=== PATIENT | female | born 1965 | race Caucasian/White ===

== ENCOUNTER 2016-11-17 16:08 | Emergency (ER) | payer OTHER ==
[2016-11-17 16:15] VITALS: BP 130/73
--- NOTE | 2016-11-17 17:40 | UC ---
Skin Complaint HPI - HPI Summary HPI Summary: has had multiple tick bites--She now has a circular rash on her right hip, feverish, fatigue and body ache just as a few years ago when she had Lyme - History of Current Complaint Chief Complaint: UCSkin Time Seen by Provider: 11/17/16 17:39 Stated Complaint: BUG BITE W RASH,COUGH,ACHES Hx Obtained From: Patient ?: No Onset/Duration: Sudden Onset, Lasting Days, Still Present Timing: Constant Onset Severity: Moderate Current Severity: Moderate Location: Diffuse Aggravating: Nothing Alleviating: Nothing Associated Signs & Symptoms: Positive: Negative Related History: Insect Bite/Sting - Allergy/Home Medications Allergies/Adverse Reactions: Allergies Allergy/AdvReac Type Severity Reaction Status Date / Time Erythromycin Allergy Intermediate Hives Verified 01/22/12 11:59 [From Erythrocin Stearate] Mustard Seed Allergy Intermediate Hives Verified 01/22/12 11:58 Tomato Allergy Mild Rash Verified 01/22/12 12:00 Basil Oil Allergy Unknown Unknown Verified 01/22/12 12:01 Reaction Details Formaldehyde Allergy Unknown Unknown Verified 01/22/12 11:59 Reaction Details Doxycycline Allergy Rash Verified 11/15/15 10:40 Iodinated Contrast Media AdvReac Unknown Rash Verified 01/22/12 11:59 [IV CONTRAST DYE] Wheat Extract AdvReac Unknown Unknown Verified 01/22/12 11:54 Reaction Details Review of Systems Constitutional: Chills, Fatigue Skin: Rash Eyes: Negative ENT: Negative Respiratory: Negative Cardiovascular: Negative Gastrointestinal: Negative Genitourinary: Negative Motor: Negative Neurovascular: Negative Musculoskeletal: Arthralgia, Myalgia Neurological: Negative Psychological: Negative All Other Systems Reviewed And Are Negative: Yes PMH/Surg Hx/FS Hx/Imm Hx Previously Healthy: Yes - Surgical History Surgical History: Yes Surgery Procedure, Year, and Place: L ovary removal. surgery for fibroids. - Family History Known Family History: Positive: Hypertension - Social History Occupation: Employed Full-time Lives: With Family Alcohol Use: Occasionally Substance Use Type: None Smoking Status (MU): Never Smoked Tobacco Physical Exam Triage Information Reviewed: Yes Appearance: Well-Appearing, No Pain Distress, Well-Nourished Vital Signs: Initial Vital Signs Temp 98.5 F 11/17/16 16:11 Pulse 75 11/17/16 16:11 Resp 18 11/17/16 16:11 BP 130/73 11/17/16 16:11 Pulse Ox 98 11/17/16 16:11 Vital Signs Reviewed: Yes Eye Exam: Normal Eyes: Positive: Conjunctiva Clear ENT Exam: Normal ENT: Positive: Normal ENT inspection, Hearing grossly normal, Pharynx normal. Negative: Nasal congestion, Nasal drainage, Trismus, Muffled/hoarse voice Dental Exam: Normal Neck exam: Normal Neck: Positive: Supple, Nontender, No Lymphadenopathy Respiratory Exam: Normal Respiratory: Positive: Chest non-tender, Lungs clear, Normal breath sounds, No respiratory distress, No accessory muscle use Cardiovascular Exam: Normal Cardiovascular: Positive: RRR, No Murmur, Pulses Normal, Brisk Capillary Refill Musculoskeletal Exam: Normal Musculoskeletal: Positive: Strength Intact, ROM Intact, No Edema Neurological Exam: Normal Neurological: Positive: Alert, Muscle Tone Normal Psychological Exam: Normal Skin Exam: Normal Skin: Positive: rashes Course/Dx - Course Course Of Treatment: Amoxicillin x 3weeks, increase fluids, follow with PCP - Differential Diagnoses - Skin Complaint Differential Diagnoses: Poison Abby, Systemic Illness, Tick Born Illness, Tinea, Other - erythema migranes - Diagnoses Provider Diagnoses: Erythema Migranes, Lyme Discharge - Discharge Plan Condition: Stable Disposition: HOME Prescriptions: Amoxicillin PO (*) [Amoxicillin 500 MG CAP*] 500 mg PO TID #63 cap Patient Education Materials: Amoxicillin (By mouth), Lyme Disease (ED) Referrals: Lamar Cohen MD [Primary Care Provider] - 2 Weeks
== END 2016-11-17 17:55 | disposition home or self-care (01) ==
LOC: UCEAST 16:08
DX: A26.0 Cutaneous erysipeloid (principal); A69.20 Lyme disease, unspecified
CPT/HCPCS: 99212; G0463

== ENCOUNTER 2017-10-20 14:35 | Emergency (ER) | payer OTHER ==
[2017-10-20 15:22] VITALS: BP 150/82
--- NOTE | 2017-10-20 15:24 | UC ---
Tanya Kenny Julia, scribed for Allison Barrett MD on 10/20/17 at 1457 . Back Pain HPI - HPI Summary HPI Summary: This patient is a 51 year old F presenting to [facility] with a chief complaint of left lower back pain for the past month gradually worsening with pain radiating down left leg for the past couple of days. Denies any specific event . Has h/o one past episode of similar symptoms long tome ago and was diagnosed with sciatica - due to her fibroid and responded to the surgery . Pain is 8/10 in severity. Pain is aggravated by laying on left side, and by bending forward. Pain gets worse with every movement . Reports difficulty walking secondary to pain. Denies incontinence, saddle sensation, motor weakness, and numbness or tingling in the extremities. Additionally denies fever, chills, CP, SOB, abdominal pain, and n/v/d. She has been taking three Motrin every six hours without relief for the past few days. Her pain has been waking her from sleep. 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 She has been seen by her PCP 2 weeks ago. Allergies reviewed with patient. - History of Current Complaint Chief Complaint: UCBackPain Stated Complaint: BACK PAIN Time Seen by Provider: 10/20/17 14:39 Hx Obtained From: Patient Onset/Duration: Gradual Onset, Lasting Weeks, Still Present Timing: Constant Pain Intensity: 8 Pain Scale Used: 0-10 Numeric Back Pain: Is Discrete @ - left lower back Aggravating Factor(s): Bending Alleviating Factor(s): Nothing Associated Signs And Symptoms: Positive: Negative - Allergies/Home Medications Allergies/Adverse Reactions: Allergies Allergy/AdvReac Type Severity Reaction Status Date / Time basil Allergy Unknown Verified 10/20/17 14:47 Reaction Details doxycycline Allergy Rash Verified 10/20/17 14:47 erythromycin base Allergy Hives Verified 10/20/17 14:47 formaldehyde Allergy Rash Verified 10/20/17 14:47 latex Allergy Rash Verified 10/20/17 14:47 tomato Allergy Rash Verified 10/20/17 14:47 wheat Allergy Unknown Verified 10/20/17 14:47 Reaction Details PMH/Surg Hx/FS Hx/Imm Hx Previously Healthy: Yes Other Endocrine History: negative Cardiovascular History: Hypertension Respiratory History: Asthma Other GI/ History: negative Other Neurological History: negative Other Psychological History: negative Other Cancer History: negative - Surgical History Surgical History: Yes Surgery Procedure, Year, and Place: L ovary removal. surgery for fibroids. - Family History Known Family History: Positive: Hypertension - Social History Alcohol Use: Occasionally Substance Use Type: None Smoking Status (MU): Never Smoked Tobacco Review of Systems Constitutional: Negative Skin: Negative Eyes: Negative ENT: Negative Respiratory: Negative Cardiovascular: Negative Gastrointestinal: Negative Genitourinary: Negative Motor: Negative Neurovascular: Negative Musculoskeletal: Decreased ROM, Myalgia - left low back pain with radiation to left leg, Other: - low back pain Neurological: Negative Psychological: Negative Is Patient Immunocompromised?: No All Other Systems Reviewed And Are Negative: Yes Physical Exam - Summary Physical Exam Summary: Appearance: Well-Appearing, No Pain Distress, Well-Nourished Eyes: conjunctiva clear, no discharge ENT: Hearing grossly normal, no muffled/hoarse voice. Neck: Normal, Supple Respiratory/Lung Sounds: Lungs clear, Normal breath sounds, No respiratory distress, No accessory muscle use Cardiovascular: RRR, No murmur Abdomen: Nontender, Soft, no guarding, not distended Bowel Sounds: Present Musculoskeletal: Spine: tenderness to palpation at the L3L4 AND L4L5 ., some midline but mainly left paraspinal muscles. Straight leg raise and slump test are negative but painful . Spine ROM is limited and painful in all planes. Left hip ROM is full and pain free Neurological: Alert, muscle tone normal. Reflexes are normal and equal bilaterally. Motor and sensation are intact Psychiatric:Normal, age appropriate behavior Skin: Normal, Warm, Dry, Normal color Triage Information Reviewed: Yes Vital Signs: Initial Vital Signs Temp 98.3 F 10/20/17 14:39 Pulse 86 10/20/17 14:39 Resp 18 10/20/17 14:39 BP 163/103 10/20/17 14:39 Pulse Ox 98 10/20/17 14:39 Vital Signs Reviewed: Yes Back Pain Course/Dx - Course Course Of Treatment: During the visit today, we discussed the findings and further plan. I will prescribe the medication to the pharmacy for pain relief. Plan to start Physical therapy. We discussed that she needs imaging including MRI to evaluate for a disc injury with PCP / orthopedics. Plan to do that if no improvement with conservative management . Patient expressed understanding . - Differential Dx/Diagnosis Differential Diagnosis/HQI/PQRI: Strain Provider Diagnoses: Low back pain. Lumbar disc injury likely L3L4 and L4L5. Discharge - Sign-Out/Discharge Documenting (check all that apply): Discharge/Admit/Transfer - Discharge Plan Condition: Stable Disposition: HOME Prescriptions: Cyclobenzaprine TAB* [Flexeril 10 MG TAB*] 10 mg PO BID 10 Days #20 tab methylPREDNISolone [Medrol Dosepak 4 MG*] 1 mg PO .[employer] 6 Days # 1 tab Naproxen [Naproxen 500 mg tab] 500 mg PO BID PRN 7 Days #14 tablet.dr PATEL Reason: Pain Patient Education Materials: Low Back Strain (ED), Lower Back Exercises (ED) Referrals: Lamar Cohen MD [Primary Care Provider] - 1 Week Amanda Garcia MD [Medical Doctor] - Additional Instructions: Start taking medications as prescribed. to the pharmacy . Start physical therapy . Follow up with your primary care doctor in 1 week. Follow up with orthopedics if no improvement. Patients blood pressure slightly high in Urgent care today , plan follow up with PCP for better control Return to Urgent care / ER if symptoms get worse. - Billing Disposition and Condition Condition: STABLE Disposition: Home The documentation as recorded by the Tanya vieyra Julia accurately reflects the service I personally performed and the decisions made by me, Allison Barrett MD.
== END 2017-10-20 15:25 | disposition home or self-care (01) ==
LOC: UCEAST 14:35
DX: M54.5 Low back pain (principal); Z88.1 Allergy status to other antibiotic agents; Z91.09 Other allergy status, other than to drugs and biological substances
CPT/HCPCS: 99212; G0463

== ENCOUNTER 2017-10-21 10:12 | Emergency (ER) | payer OTHER ==
[2017-10-21] MEDS ORDERED: NS 0.9% 1000 ML* 1,000 ML IV ONE (10:46)
[2017-10-21] MEDS ORDERED: Ketorolac INJ* 30 MG/ML 1 ML VIAL IV ONE (10:46)
[2017-10-21] MEDS ORDERED: Ondansetron ODT TAB* 4 MG PO ONE (10:46)
[2017-10-21] MEDS ORDERED: Morphine VIAL* 4 MG/ML VIAL (1 ml vial) IV ONE (10:46)
[2017-10-21 11:16] LABS: ABS Basophils 0 10^3/ul (0-0.2); ABS Eosinophils 0.1 10^3/ul (0-0.6); ABS Lymphocytes 1.3 10^3/ul (1.0-4.8); ABS Monocytes 0.1 10^3/ul (0-0.8); ABS Neutrophils 6.5 10^3/ul (1.5-7.7); ABS Nucleated RBC 0 10^3/ul; Hematocrit 45 % (35-47); Hemoglobin 15.3 g/dl (12.0-16.0); Lymphocyte % 16.2 % (25-47); Mean Corpuscular HGB Conc 34 g/dl (31-36); Mean Corpuscular Hemoglobin 27 pg (27-31); Mean Corpuscular Volume 80 fL (80-97); Mean Platelet Volume 7.2 um3 (7.4-10.4); Nucleated Red Blood Cells % 0.1; Platelet Count 239 10^3/ul (150-450); Red Blood Count 5.62 10^6/ul (4.00-5.40); Red Cell Distribution Width 14 % (10.5-15)
[2017-10-21 11:30] LABS: INR 0.94 (0.77-1.02)
[2017-10-21 11:57] LABS: Urine Appearance Clear; Urine Blood 1+ (Negative); Urine Color Yellow; Urine Ketones Negative (Negative); Urine Protein Negative (Negative); Urine Specific Gravity 1.006 (1.010-1.030); Urine Urobilinogen Negative (Negative)
--- NOTE | 2017-10-21 12:05 | RAD ---
Indication: Left flank pain. CT of the abdomen and pelvis was performed without oral or IV contrast administration. Coronal and sagittal reconstructed images were obtained. The lung bases demonstrate no pleural fluid, nodules or masses. Heart is of normal size without evidence of pericardial effusion. Liver is normal in size. Low density lesion in the right lobe of liver measures 10 mm. This likely represents a small hemangioma. Correlation with ultrasound may BE helpful. No other focal lesions are noted. The gallbladder demonstrates multiple gallstones with air-filled stones noted in the gallbladder. No pericholecystic fluid or wall thickening is identified. Common duct is not dilated. The pancreas demonstrates no mass effect or ductal dilatation. The spleen is normal in size. No adrenal lesions are noted. Kidneys demonstrate no hydronephrosis. No retroperitoneal lymphadenopathy is noted. There are no dilated loops of bowel noted CT of pelvis demonstrates uterus and ovaries to be unremarkable. The urinary bladder is unremarkable. No hernias are identified. No free fluid is identified. The visualized abdominal organs are otherwise remarkable. Degenerative disc disease at L5-S1 is noted. IMPRESSION: No obstructive uropathy is noted. No other masses or fluid collections are identified.
--- NOTE | 2017-10-21 12:07 | RAD ---
Indication: Back pain. CT of the lumbar spine was obtained in the axial plane. Sagittal and coronal reconstructed images were obtained. The vertebral bodies appear normal in height. Straightening of the normal lordosis is noted. At L5-S1 there is disc space narrowing. Minimal spondylitic ridge with broad-based protrusion flattens the thecal sac. No definite central or foraminal stenosis is noted. At L4-L5 there is broad-based protrusion flattening the thecal sac. Mild facet arthropathy with ligamentous hypertrophy is noted resulting in a mild spinal stenosis at this level. There is a left posterior lateral disc component of the disc protrusion which appears to impinge upon the left exiting nerve root. At L3-L4 minimal broad-based protrusion flattens the thecal sac. No central or foraminal stenosis is noted. At L1-L2 and L2-L3 no disc protrusion is noted. No fracture is noted. IMPRESSION: At L5-S1 there is degenerative disc disease with broad-based protrusion flattening the thecal sac. Focal central protrusion indents the thecal sac. At L4-L5 broad-based protrusion with a left posterior lateral disc component appears to impinge upon the left exiting nerve root. There also may be some mild ligamentous hypertrophy resulting in mild spinal stenosis. No fracture of the lumbar spine is noted.
[2017-10-21 13:22] LABS: EGFR Non-African American 76.4 (>60)
[2017-10-21] MEDS ORDERED: oxyCODONE/Acetamin 5/325 MG* TAB PO ONE (13:26)
[2017-10-21 14:31] VITALS: BP 145/77
--- NOTE | 2017-10-21 16:03 | ED ---
Maribel Kenny SooYoung, scribed for Isaias Chavez MD on 10/21/17 at 1035 . Back Pain - HPI Summary HPI Summary: A 51 y/o F presents to ED with c/o ongoing L-sided and midline back pain for past month, and worsening last night. Pain rated as 9 out of 10, and radiating to anterior side and LE. Associated sx: mild LE weakness. Denies LE numbness, urinary sx. Pt states "I always have rashes." Aggravating factors: all movement. Pt states she's unable to sleep due to the pain. Seen at [facility] yesterday , started on Flexeril. Last took Naproxen at 0600. SHx: fibroid tumors. Negative PMHx: kidney stones. Multiple allergies noted. - History of Current Complaint Chief Complaint: EDBackInjuryPain Stated Complaint: BACK PAIN Time Seen by Provider: 10/21/17 10:33 Hx Obtained From: Patient, Family/Pets Salesperson Onset/Duration: Lasting Hours - c/c, Lasting Weeks - initial onset, Still Present Onset/Duration: Still Present Timing: Constant Back Pain Location: Is Discrete @ - L-sided back, Radiates To - L-side front, LE Severity Initially: Moderate Severity Currently: Severe Pain Intensity: 9 Pain Scale Used: 0-10 Numeric Associated Signs And Symptoms: Positive: Weakness - mild LE. Negative: Numbness , Bladder Incontinence - Allergies/Home Medications Allergies/Adverse Reactions: Allergies Allergy/AdvReac Type Severity Reaction Status Date / Time basil Allergy Unknown Verified 10/21/17 10:22 Reaction Details doxycycline Allergy Rash Verified 10/21/17 10:22 erythromycin base Allergy Hives Verified 10/21/17 10:22 formaldehyde Allergy Rash Verified 10/21/17 10:22 latex Allergy Rash Verified 10/21/17 10:22 tomato Allergy Rash Verified 10/21/17 10:22 wheat Allergy Unknown Verified 10/21/17 10:22 Reaction Details PMH/Surg Hx/FS Hx/Imm Hx Previously Healthy: No Cardiovascular History: Reports: Hx Hypertension Respiratory History: Reports: Hx Asthma - Cancer History Hx Chemotherapy: No Hx Radiation Therapy: No - Surgical History Surgery Procedure, Year, and Place: L ovary removal. surgery for fibroids. Infectious Disease History: No Infectious Disease History: Denies: History Other Infectious Disease, Traveled Outside the [place] in Last 30 Days - Family History Known Family History: Positive: Hypertension - Social History Occupation: Employed Part-time Lives: With Family Alcohol Use: Occasionally Hx Substance Use: No Substance Use Type: Reports: None Hx Tobacco Use: No Smoking Status (MU): Never Smoked Tobacco Review of Systems Negative: other - neg: urinary sx Positive: Other - back pain; mild LE weakness Negative: Numbness - LE All Other Systems Reviewed And Are Negative: Yes Physical Exam - Summary Physical Exam Summary: General: well-appearing, no pain distress Skin: warm, color reflects adequate perfusion, dry Head: normal Eyes: EOMI, ERNESTO ENT: normal Neck: supple, nontender Respiratory: CTA, breath sounds present Cardiovascular: RRR Abdomen: soft, nontender Bowel: present Musculoskeletal: Tender to palpation of mid spine, lower lumber on left, and paraspinous area. No sensation deficit. Mildly decreased ROM L leg with plantar/ dorsal flexion and knee extension secondary to pain. Neurological: sensory/motor intact, A&O x3 Psychological: affect/mood appropriate Triage Information Reviewed: Yes Vital Signs On Initial Exam: Initial Vitals Temp Pulse Resp BP Pulse Ox 99.2 F 83 18 143/86 95 10/21/17 10:18 10/21/17 10:18 10/21/17 10:18 10/21/17 10:18 10/21/17 10:18 Vital Signs Reviewed: Yes Diagnostics - Vital Signs Vital Signs Temp Pulse Resp BP Pulse Ox 10/21/17 10:18 99.2 F 83 18 143/86 95 - Laboratory Lab Results: Lab Results 10/21/17 10/21/17 10/21/17 Range/Units 10:59 10:59 10:59 WBC 8.0 (3.5-10.8) 10^3/ul RBC 5.62 H (4.00-5.40) 10^6/ul Hgb 15.3 (12.0-16.0) g/dl Hct 45 (35-47) % MCV 80 (80-97) fL MCH 27 (27-31) pg MCHC 34 (31-36) g/dl RDW 14 (10.5-15) % Plt Count 239 (150-450) 10^3/ul MPV 7.2 L (7.4-10.4) um3 Neut % (Auto) 81.1 (38-83) % Lymph % (Auto) 16.2 L (25-47) % [place] % (Auto) 1.2 (0-7) % Eos % (Auto) 1.0 (0-6) % Baso % (Auto) 0.5 (0-2) % Absolute Neuts (auto) 6.5 (1.5-7.7) 10^3/ul Absolute Lymphs (auto) 1.3 (1.0-4.8) 10^3/ul Absolute Monos (auto) 0.1 (0-0.8) 10^3/ul Absolute Eos (auto) 0.1 (0-0.6) 10^3/ul Absolute Basos (auto) 0 (0-0.2) 10^3/ul Absolute Nucleated RBC 0 10^3/ul Nucleated RBC % 0.1 INR (Anticoag Therapy) 0.94 (0.77-1.02) APTT 34.8 (26.0-36.3) seconds Sodium 140 (135-145) mmol/L Potassium 4.2 (3.5-5.0) mmol/L Chloride 106 (101-111) mmol/L Carbon Dioxide 23 (22-32) mmol/L Anion Gap 11 (2-11) mmol/L BUN 8 (6-24) mg/dL Creatinine 0.79 (0.51-0.95) mg/dL Est GFR ( Amer) 92.5 (>60) Est GFR (Non-Af Amer) 76.4 (>60) BUN/Creatinine Ratio 10.1 (8-20) Glucose 143 H (70-100) mg/dL Lactic Acid (0.5-2.0) mmol/L Calcium 10.2 (8.6-10.3) mg/dL Total Bilirubin 0.50 (0.2-1.0) mg/dL AST 16 (13-39) U/L ALT 21 (7-52) U/L Alkaline Phosphatase 61 (34-104) U/L C-Reactive Protein 1.55 (<8.01) mg/L Total Protein 7.9 (6.4-8.9) g/dL Albumin 4.7 (3.2-5.2) g/dL Globulin 3.2 (2-4) g/dL Albumin/Globulin Ratio 1.5 (1-3) Lipase 52 (11.0-82.0) U/L Beta HCG, Quant 4.52 mIU/mL Urine Color Urine Appearance Urine pH (5-9) Ur Specific [place] (1.010-1.030) Urine Protein (Negative) Urine Ketones (Negative) Urine Blood (Negative) Urine Nitrate (Negative) Urine Bilirubin (Negative) Urine Urobilinogen (Negative) Ur Leukocyte Esterase (Negative) Urine WBC (Auto) (Absent) Urine RBC (Auto) (Absent) Urine Bacteria (Absent) Urine Glucose (Negative) 10/21/17 10/21/17 Range/Units 10:59 11:40 WBC (3.5-10.8) 10^3/ul RBC (4.00-5.40) 10^6/ul Hgb (12.0-16.0) g/dl Hct (35-47) % MCV (80-97) fL MCH (27-31) pg MCHC (31-36) g/dl RDW (10.5-15) % Plt Count (150-450) 10^3/ul MPV (7.4-10.4) um3 Neut % (Auto) (38-83) % Lymph % (Auto) (25-47) % [place] % (Auto) (0-7) % Eos % (Auto) (0-6) % Baso % (Auto) (0-2) % Absolute Neuts (auto) (1.5-7.7) 10^3/ul Absolute Lymphs (auto) (1.0-4.8) 10^3/ul Absolute Monos (auto) (0-0.8) 10^3/ul Absolute Eos (auto) (0-0.6) 10^3/ul Absolute Basos (auto) (0-0.2) 10^3/ul Absolute Nucleated RBC 10^3/ul Nucleated RBC % INR (Anticoag Therapy) (0.77-1.02) APTT (26.0-36.3) seconds Sodium (135-145) mmol/L Potassium (3.5-5.0) mmol/L Chloride (101-111) mmol/L Carbon Dioxide (22-32) mmol/L Anion Gap (2-11) mmol/L BUN (6-24) mg/dL Creatinine (0.51-0.95) mg/dL Est GFR ( Amer) (>60) Est GFR (Non-Af Amer) (>60) BUN/Creatinine Ratio (8-20) Glucose (70-100) mg/dL Lactic Acid 0.8 (0.5-2.0) mmol/L Calcium (8.6-10.3) mg/dL Total Bilirubin (0.2-1.0) mg/dL AST (13-39) U/L ALT (7-52) U/L Alkaline Phosphatase (34-104) U/L C-Reactive Protein (<8.01) mg/L Total Protein (6.4-8.9) g/dL Albumin (3.2-5.2) g/dL Globulin (2-4) g/dL Albumin/Globulin Ratio (1-3) Lipase (11.0-82.0) U/L Beta HCG, Quant mIU/mL Urine Color Yellow Urine Appearance Clear Urine pH 6.0 (5-9) Ur Specific [place] 1.006 L (1.010-1.030) Urine Protein Negative (Negative) Urine Ketones Negative (Negative) Urine Blood 1+ A (Negative) Urine Nitrate Negative (Negative) Urine Bilirubin Negative (Negative) Urine Urobilinogen Negative (Negative) Ur Leukocyte Esterase 1+ A (Negative) Urine WBC (Auto) Trace(0-5/hpf) (Absent) Urine RBC (Auto) Trace(0-2/hpf) (Absent) Urine Bacteria Absent (Absent) Urine Glucose Negative (Negative) Result Diagrams: 10/21/17 10:59 10/21/17 10:59 Lab Statement: Any lab studies that have been ordered have been reviewed, and results considered in the medical decision making process. - CT A/P CT CT Interpretation: No Acute Changes - IMPRESSION: No obstructive uropathy is noted. No other masses or fluid collections are identified. ED physician has reviewed this radiology report and agrees. CT Interpretation Completed By: Radiologist L-SPINE CT Interpretation: Positive (See Comments) - IMPRESSION: At L5-S1 there is degenerative disc disease with broad-based protrusion flattening the thecal sac. Focal central protrusion indents the thecal sac. At L4-L5 broad-based protrusion with a left posterior lateral disc component appears to impinge upon the left exiting nerve root. There also may be some mild ligamentous hypertrophy resulting in mild spinal stenosis. No fracture of the lumbar spine is noted. ED physician has reviewed this radiology report and agrees. CT Interpretation Completed By: Radiologist Re-Evaluation - Re-Evaluation 1 Re-Evaluation Time: 13:17 Change: Improved Comment: Discussing imaging results with pt. Pt voiced understanding. Upon brief PE, pt was able to plantar/dorsal flex L foot and great toe. Back Pain Course/Dx - Course Course Of Treatment: SOME IMPROVEMENT IN PAIN IN ED. REVIEWED LAB/CT RESULTS WITH THE PATIENT AND . NO WEAKNESS/DECREASED SENSATION FOUND ON EXAM. NO LOSS OF BLADDER/BOWEL CONTROL. DECREASED ROM DUE TO PAIN. I DISCUSSED F/U WITH PMD; CALL TOMORROW FOR F/U. ALSO DISCUSSED THE NEED FOR IMMEDIATE RE EVALUATION IF ANY NEUROLOGIC DEFICIT OCCURS. - Diagnoses Provider Diagnoses: Low back pain, Lumbar radiculopathy Discharge - Sign-Out/Discharge Documenting (check all that apply): Discharge/Admit/Transfer - Discharge Plan Condition: Stable Disposition: HOME Prescriptions: oxyCODONE/Acetamin 5/325 MG* [Percocet 5/325 TAB*] 1 tab PO Q4H PRN #30 tab MDD 6 PRN Reason: Pain Patient Education Materials: Acute Low Back Pain (ED), Lumbar Radiculopathy (ED ) Forms: *Work Release Referrals: Lamar Cohen MD [Primary Care Provider] - Additional Instructions: FOLLOW UP WITH YOUR DOCTOR. CALL TOMORROW FOR FOLLOW UP. GET RECHECKED FOR ANY WORSENING OF YOUR CONDITION; WEAKNESS, NUMBNESS, DIFFICULTY CONTROLLING BOWEL OR BLADDER OR QUESTIONS OR CONCERNS. - Billing Disposition and Condition Condition: STABLE Disposition: Home The documentation as recorded by the Maribel vieyra SooYoung accurately reflects the service I personally performed and the decisions made by me, Isaias Chavez MD.
--- NOTE | 2017-10-23 07:23 | PN ---
Progress Note - Progress Note Date of Service: 10/21/17 Note: Urine culture grew strep group B Patient placed on antibiotics prior to discharge Due to low colony count, will not place on antibiotics at this time due to risk to benefit ratio Nothing further at this time, Daija Tuttle, PAC
== END 2017-10-21 14:31 | disposition home or self-care (01) ==
LOC: ED 10:12
DX: M51.16 Intervertebral disc disorders with radiculopathy, lumbar region (principal); M51.37 Other intervertebral disc degeneration, lumbosacral region; M51.27 Other intervertebral disc displacement, lumbosacral region; Z88.3 Allergy status to other anti-infective agents; Z88.8 Allergy status to other drugs, medicaments and biological substances
CPT/HCPCS: 36415; 72131; 74176; 80053; 81003; 81015; 83605; 83690; 84702; 85025; 85610; 85730; 86140; 87077; 87086; 96361; 96374; 96375; 99282; A9270-GY; J1885; J2270

== ENCOUNTER 2017-11-27 06:07 | Observation (INO) | payer OTHER ==
[~2017-11-27 06:07] MED LIST: Buffered Lidocaine 0.9% SYRIN* 5 ML/SYR SYRINGE INTRADERM ONE; Dexamethasone IV* 4 MG/ML 1 ML (4 MG) IV SLOW PU ONE; Famotidine IV* 10 MG/ML 2 ML (20 mg) IV ONE
[2017-11-27] MEDS ORDERED: Dexamethasone IV* 4 MG/ML 1 ML (4 MG) ONE (06:40)
[2017-11-27] MEDS ORDERED: Famotidine IV* 10 MG/ML 2 ML (20 mg) ONE (06:40)
[2017-11-27] MEDS ORDERED: ceFAZolin 2 GM PREMIX (*) 2 GM/50 ML BAG IVPB ONE (06:41)
[2017-11-27] MEDS ORDERED: fentaNYL* 50 MCG/ML 5 ML VIAL (250 MCG VIAL) ONE (06:45)
[2017-11-27] MEDS ORDERED: Midazolam* 1 MG/ML 2 ML VIAL (2 MG) ONE (06:45)
[2017-11-27] MEDS ORDERED: Rocuronium* 10 MG/ML VIAL ONE (06:45)
[2017-11-27] MEDS ORDERED: Lidocaine 2% PF * 5 ML VIAL ONE (06:46)
[2017-11-27] MEDS ORDERED: Lidocain 1% EPI 1:100,000 * 30 ML MDV ONE (06:54)
[2017-11-27] MEDS ORDERED: Bacitracin IV* 50,000 UNITS INJ ONE (06:55)
[2017-11-27] MEDS ORDERED: Thrombin 5,000 UNITS* 1 APPLIC KIT - topical use - TOPICAL ONE (06:55)
[2017-11-27] MEDS ORDERED: Artificial Tears* 15 ML BTL ONE (07:20)
[2017-11-27] MEDS ORDERED: HYDROmorphone INJ* 0.5 MG/0.5 ML SYRINGE ONE (08:09)
[2017-11-27] MEDS ORDERED: Propofol* 10 MG/ML 20 ML BTL IV PUSH ONE (08:10)
[2017-11-27] MEDS ORDERED: Ondansetron INJ* 2 MG/ML VIAL ONE ×2 (08:10→10:40)
[2017-11-27] MEDS ORDERED: oxyCODONE/Acetamin 5/325 MG* TAB PO PRN (08:28)
[2017-11-27] MEDS ORDERED: Naloxone* 0.4 MG/ML 1 ML VIAL IV PRN (08:28)
[2017-11-27] MEDS ORDERED: DiMENhydriNATE IV* 50 MG/ML VIAL IV PUSH PRN (08:28)
[2017-11-27] MEDS ORDERED: Ondansetron INJ* 2 MG/ML VIAL IV PRN ×2 (08:28→09:16)
[2017-11-27] MEDS ORDERED: HYDROmorphone INJ* 0.5 MG/0.5 ML SYRINGE IV PRN (08:28)
[2017-11-27] MEDS ORDERED: Acetaminophen TAB* 325 MG PO PRN ×2 (08:28→09:16)
[2017-11-27] MEDS ORDERED: Sugammadex * 200 MG/2 ML VIAL IV PUSH ONE (09:01)
[2017-11-27] MEDS ORDERED: fentaNYL* 50 MCG/ML 2 ML VIAL (100 MCG VIAL) ONE (09:48)
[2017-11-27] MEDS: fentaNYL* 50 MCG/ML 2 ML VIAL (100 MCG VIAL) IV PRN ×3 (09:49→10:09)
--- NOTE | 2017-11-27 10:12 | RAD ---
Indication: Lumbar discectomy LEFT L4-L5. Comparison: November 09, 2017 MRI. Technique: Portable prone crosstable lateral lumbar sacral spine 0815 hours Report: Anterior /ventral margin of the metallic instrument is at the level of the L4-L5 facet joints. Soft tissue retractor noted. Moderate L4-L5 and severe L5-S1 disc space narrowing. IMPRESSION: #. Intraoperative control film.
[2017-11-27] MEDS ORDERED: HYDROcodone/ACETAMIN 5-325 MG* 1 TAB ONE (10:40)
[2017-11-27] MEDS: HYDROcodone/ACETAMIN 5-325 MG* 1 TAB PO PRN ×2 (15:57→21:42)
[2017-11-28] MEDS: HYDROcodone/ACETAMIN 5-325 MG* 1 TAB PO PRN ×2 (03:30→08:27)
--- NOTE | 2017-11-28 07:45 | PN ---
Progress Note - Progress Note Date of Service: 11/28/17 SOAP: Subjective: [S/p lumbar discectomy L4-5 left, POD #1. Patient complains of incisional soreness this morning. Some nausea yesterday, improved with zofran. Ambulating well. Pre-op LLE symptoms improving, denies LLE pain.] Objective: [Vital Signs: Temp Pulse Resp BP Pulse Ox 98.0 F 77 16 117/66 96 11/28/17 04:08 11/28/17 04:08 11/28/17 04:08 11/28/17 04:08 11/28/17 04:08 General: Alert and NAD. Neuro: Motor and sensory intact. Incision: Dressing in place and no drainage or swelling. ] Assessment: [Satisfactory post-op] Plan: [1. Discharge home today. 2. Discharge instructions discussed with the patient. ]
[2017-11-28 08:23] VITALS: BP 128/68
[2017-11-28] MEDS ORDERED: Metoprolol Tartrate TAB* 50 mg PO SCH (09:00)
--- NOTE | 2017-11-28 22:34 | OP ---
DATE OF OPERATION: 11/27/17 - ROOM #[id number] DATE OF : 63 SURGEON: Ayaz Avila MD SECURITY TEAM LEAD: GEORGETTE Keys ANESTHESIA: General. PRE-OP DIAGNOSIS: Herniated nucleus pulposus, L4-5, on the left. POST-OP DIAGNOSIS: Herniated nucleus pulposus, L4-5, on the left. OPERATIVE PROCEDURE: Partial hemilaminectomy, L4-5, on the left with excision of far lateral herniated nucleus pulposus with microdissection. DESCRIPTION OF PROCEDURE: After satisfactory general anesthesia was obtained, the patient was placed on operating table in the prone position with the chest supported on the Eder frame and the back slightly flexed. The lumbar region was then clipped, prepped and draped in sterile manner for lumbar laminectomy and the skin incision outlined from L4 to L5. This incision was then infiltrated with 1% Xylocaine with epinephrine after which it was turned down sharply to the level of the lumbar fascia. The fascia was divided along the spinous processes of L4 and L5 and the paraspinal musculature stripped away from these posterior elements using the periosteal elevator and monopolar cautery. An intraoperative x-ray was obtained verifying proper interspace localization after which partial alvaro-laminectomy was carried out by removing the inferior aspect of the L4 lamina and medial aspect of the facet complex with a combination of the [place] drill and Kerrison rongeurs. This was carried superiorly until the attachment of ligamentum flavum was taken down. Ligamentum flavum was then removed with the Kerrison as well. At this point of the procedure, the operating microscope was brought into the field and the remainder of the procedure done under microscopic visualization. Preoperative imaging had suggested a far lateral disk herniation. Additional superior and lateral exposure was obtained and utilizing microdissection, the intraforaminal area of the L4 nerve root was explored with multiple fragments of freely extruded disk material removed from this region. The disk space itself was then opened and the disk space cleared of any loose disk material using pituitary forceps and curettes. At the conclusion of the decompression, both the L4 and L5 nerve roots were noted to be free in their course. After assuring adequate hemostasis, the wound was thoroughly irrigated after which a piece of Gelfoam was placed over the laminectomy defect. The fascia was then reapproximated with 0 Vicryl sutures and subcutaneous tissues closed with 3-0 Vicryl suture and the skin closed with skin clips. The estimated blood loss was less than 50 cc, and final sponge, padding, and needle counts were correct. The patient was taken to recovery room, extubated and in stable condition. [id number]/[facility] #: [id number] MTDD
== END 2017-11-28 10:39 | disposition home or self-care (01) ==
LOC: OR 06:07 → INTOOBSV 09:16 → SSU 09:16 → UNDOADMIN 10:25 → SSU 10:25
PROVIDERS: ADMIT Neurological Surgery; ATTEND Neurological Surgery
DX: M51.26 Other intervertebral disc displacement, lumbar region (principal); M54.5 Low back pain; I10 Essential (primary) hypertension
CPT/HCPCS: 72100; 88304; A9270-GY; G0378; J0690; J1100; J1170; J2250; J2405; J2704; J3010